=== PATIENT | male | born 1985 | race Two or more races ===

== ENCOUNTER 2023-09-12 16:52 | Emergency (ER) | payer BC ==
[~2023-09-12] VITALS: Ht 188 cm; Wt 106.6 kg
[2023-09-12] MEDS ORDERED: XOLAIR SQ (17:24)
[2023-09-12] MEDS ORDERED: KETOROLAC TROMETHAMINE 60 MG VIAL IM ONE (18:30)
[2023-09-12] MEDS ORDERED: TETANUS & DIPHTHERIA TOX,ADULT 0.5 ML VIAL IM ONE (18:30)
[2023-09-12] MEDS ORDERED: LIDOCAINE HCL 1% 10ML VIAL PERCUT ONE (18:30)
[2023-09-12] MEDS ORDERED: CEFTRIAXONE SODIUM 1,000 MG VIAL IM ONE (18:30)
[2023-09-12] MEDS ORDERED: CEPHALEXIN500 MG PO (20:19)
[2023-09-12] MEDS ORDERED: DICLOFENAC SODI50 MG PO (20:19)
== END 2023-09-12 20:30 ==
LOC: ER 16:53
DX: S91.312A Laceration without foreign body, left foot, initial encounter (principal); X58.XXXA Exposure to other specified factors, initial encounter; Y93.89 Activity, other specified; Y92.89 Other specified places as the place of occurrence of the external cause; Y99.8 Other external cause status